=== PATIENT | male | born 1965 | race Hispanic/Latino ===

== ENCOUNTER 2017-06-28 16:24 | Observation (INO) | payer MEDICAID ==
[~2017-06-28] VITALS: Ht 185.4 cm; Wt 104.3 kg
[2017-06-28 16:49] LABS: BASOPHILS % (AUTO) 1.3 % (0.0-5.0); EOSINOPHILS % (AUTO) 1.9 % (0.0-8.0); LYMPHOCYTES % (AUTO) 31.2 % (21.0-51.0); MEAN CORPUSCULAR HEMOGLOBIN 29.5 pg (27.0-33.0); MEAN CORPUSCULAR HGB CONC 34.3 g/dL (32.0-36.0); MEAN CORPUSCULAR VOLUME 86.1 fL (79-99); MONOCYTES % (AUTO) 6.9 % (3.0-13.0); NEUTROPHILS % (AUTO) 58.7 % (40.0-77.0); NUCLEATED RED BLOOD CELLS 0.1 % (0.0-0.19); PLATELET COUNT (AUTO) 301 K/uL (130-400); RED BLOOD CELL COUNT(AUTO) 4.87 MIL/uL (4.50-6.20); RED CELL DISTRIBUTION WIDTH 14.5 % (11.0-15.5); WHITE BLOOD COUNT (AUTO) 7.2 K/uL (4.8-10.8)
[2017-06-28 17:05] LABS: CREATININE 0.9 mg/dL (0.5-1.5); POTASSIUM 3.6 mmol/L (3.5-5.1)
[2017-06-28] MEDS ORDERED: ASPIRIN 325 MG TABLET ONE (17:09)
[2017-06-28] MEDS ORDERED: NITROGLYCERIN 1GM/1 INCH PACKET TD ONE (17:09)
[2017-06-28 17:18] LABS: ALBUMIN 3.6 g/dL (3.5-5.0); BILIRUBIN,TOTAL 0.3 mg/dL (0.2-1.0); CREATINE KINASE MB 0.6 ng/mL (0.5-3.6); TOTAL PROTEIN, SERUM 7.1 g/dL (6.0-8.3)
[2017-06-28 17:22] LABS: INR 0.91 (0.85-1.15); PROTHROMBIN TIME 9.6 SEC (9.6-11.6)
[2017-06-28 17:30] LABS: APPEARANCE,URINE Clear (CLEAR); BILIRUBIN,URINE Negative (NEGATIVE); COLOR,URINE Yellow (YELLOW); GLUCOSE, URINE (UA) Negative (NEGATIVE); KETONES,URINE Negative (NEGATIVE); LEUKOCYTE ESTERASE ,URINE Negative (NEGATIVE); NITRATE,URINE Negative (NEGATIVE); OCCULT BLOOD,URINE Negative (NEGATIVE); PROTEIN,URINE Negative (NEGATIVE)
[2017-06-28 17:37] LABS: AMPHET/METH SCREEN,URINE NEGATIVE (NEGATIVE); BARBITURATE SCREEN, URINE NEGATIVE (NEGATIVE); BENZODIAZEPINES SCREEN,URINE POSITIVE (NEGATIVE); CANNABINOID SCREEN,URINE NEGATIVE (NEGATIVE); COCAINE SCREEN,URINE NEGATIVE (NEGATIVE); OPIATE SCREEN,URINE NEGATIVE (NEGATIVE); PHENCYCLIDINE SCREEN,URINE NEGATIVE (NEGATIVE)
[2017-06-28] MEDS ORDERED: MORPHINE SULFATE 2 MG/ML 1ML SYG ONE (19:58)
[2017-06-28] MEDS ORDERED: METOPROLOL TARTRATE 25 MG TAB ONE (19:58)
[2017-06-28] MEDS ORDERED: LORAZEPAM 1 MG TABLET ONE (21:12)
[2017-06-28 23:13] LABS: CREATINE KINASE MB 0.6 ng/mL (0.5-3.6); CREATINE KINASE, TOTAL 136 U/L (21-232); MYOGLOBIN 41 ng/mL (10-92); TROPONIN I < 0.04 ng/mL (0.00-0.06)
[2017-06-29] MEDS ORDERED: LIDOCAINE HCL-MPF 1% 2ML VIAL IVP PRN (01:15)
[2017-06-29] MEDS ORDERED: ACETAMINOPHEN 325 MG TAB PO PRN (01:15)
[2017-06-29] MEDS ORDERED: HYDRALAZINE HCL 20 MG/ML VIAL IV PRN (01:15)
[2017-06-29] MEDS ORDERED: POTASSIUM CHLORIDE 10% ELIXIR 20 MEQ/15 ML UDCUP PO PRN (01:15)
[2017-06-29] MEDS ORDERED: POTASSIUM CHLORIDE 20MEQ/100ML 100 ML IV PRN (01:15)
[2017-06-29] MEDS ORDERED: POTASSIUM CHLORIDE 20 MEQ ERTAB PO PRN (01:15)
[2017-06-29] MEDS ORDERED: ALBUTEROL SULFATE 0.083% 2.5 MG/3 ML INH IH PRN (01:15)
[2017-06-29] MEDS ORDERED: MORPHINE SULFATE 2 MG/ML 1ML SYG ONE (02:32)
[2017-06-29 04:15] LABS: HEMATOCRIT 43.2 % (42-54); MEAN CORPUSCULAR HEMOGLOBIN 29.2 pg (27.0-33.0); MEAN CORPUSCULAR HGB CONC 34.2 g/dL (32.0-36.0); MEAN CORPUSCULAR VOLUME 85.4 fL (79-99); PLATELET COUNT (AUTO) 317 K/uL (130-400); RED BLOOD CELL COUNT(AUTO) 5.06 MIL/uL (4.50-6.20); RED CELL DISTRIBUTION WIDTH 14.5 % (11.0-15.5)
[2017-06-29 04:36] LABS: B-TYPE NATRIURETIC PEPTIDE < 5 pg/mL (0-100)
[2017-06-29 04:40] LABS: CARBON DIOXIDE 31 mmol/L (21-32); CHLORIDE 102 mmol/L (101-111); CHOLESTEROL 239 mg/dL (<200); CREATINE KINASE MB < 0.5 ng/mL (0.5-3.6); CREATINE KINASE, TOTAL 135 U/L (21-232); CREATININE 0.7 mg/dL (0.5-1.5); GLOMERULAR FILTR. RATE CALC 125 mL/min (>60); GLUCOSE,RANDOM 91 mg/dL (70-105); HDL CHOLESTEROL 47 mg/dL (29-71); LDL DIRECT 166 mg/dL (0-99); MYOGLOBIN 44 ng/mL (10-92); POTASSIUM 3.9 mmol/L (3.5-5.1); SODIUM SERUM 139 mmol/L (136-145); TRIGLYCERIDES 179 mg/dL (30-200); TROPONIN I < 0.04 ng/mL (0.00-0.06); UREA NITROGEN, BLOOD 14 mg/dL (7-18)
[2017-06-29 07:00] VITALS: BP 143/98
[2017-06-29] MEDS ORDERED: LORAZEPAM 0.5 MG TABLET PO SCH (08:00)
[2017-06-29] MEDS: METOPROLOL TARTRATE 25 MG TAB PO SCH ×2 (10:59→20:26)
[2017-06-29] MEDS: ASPIRIN 325MG EC TAB 325 MG TABLET.DR PO SCH (10:59)
[2017-06-29] MEDS: FAMOTIDINE 20MG TAB 20 MG TAB PO SCH ×2 (10:59→20:26)
[2017-06-29] MEDS: ENOXAPARIN SODIUM 40 MG/0.4 ML SYRINGE SQ SCH (11:00)
[2017-06-29] MEDS: MORPHINE SULFATE 2 MG/ML 1ML SYG IVP PRN ×2 (11:00→17:44)
[2017-06-29 12:00] VITALS: BP 161/109
[2017-06-29 16:00] VITALS: BP 149/90
[2017-06-29 19:00] VITALS: BP 145/92
[2017-06-29] MEDS ORDERED: ALPR-410 PO (20:23)
[2017-06-29] MEDS ORDERED: DULO30CA51 PO (20:23)
[2017-06-29] MEDS ORDERED: QUET100T70 PO (20:23)
[2017-06-29] MEDS: ALPRAZOLAM 0.5 MG TABLET PO SCH (21:00)
[2017-06-29] MEDS ORDERED: QUETIAPINE FUMARATE 100 MG TAB PO SCH (21:00)
[2017-06-29] MEDS ORDERED: DULOXETINE HCL 30 MG CAP PO SCH (21:00)
[2017-06-30] VITALS: BP 103/69
[2017-06-30] MEDS: MORPHINE SULFATE 2 MG/ML 1ML SYG IVP PRN (00:21)
[2017-06-30 04:00] VITALS: BP 128/90
[2017-06-30 05:14] LABS: HEMATOCRIT 41.4 % (42-54); MEAN CORPUSCULAR HEMOGLOBIN 29.5 pg (27.0-33.0); MEAN CORPUSCULAR HGB CONC 34.4 g/dL (32.0-36.0); MEAN CORPUSCULAR VOLUME 85.7 fL (79-99); PLATELET COUNT (AUTO) 328 K/uL (130-400); RED BLOOD CELL COUNT(AUTO) 4.83 MIL/uL (4.50-6.20); RED CELL DISTRIBUTION WIDTH 14.2 % (11.0-15.5); WHITE BLOOD COUNT (AUTO) 8.8 K/uL (4.8-10.8)
[2017-06-30 05:34] LABS: CREATININE 0.9 mg/dL (0.5-1.5); POTASSIUM 3.5 mmol/L (3.5-5.1)
[2017-06-30] MEDS ORDERED: MORPHINE SULFATE 4 MG/1ML SYG ONE (06:06)
[2017-06-30 08:00] VITALS: BP 129/89
[2017-06-30] MEDS: ENOXAPARIN SODIUM 40 MG/0.4 ML SYRINGE SQ SCH (08:32)
[2017-06-30] MEDS: ALPRAZOLAM 0.5 MG TABLET PO SCH ×2 (08:32→12:56)
[2017-06-30] MEDS: METOPROLOL TARTRATE 25 MG TAB PO SCH (08:32)
[2017-06-30] MEDS: ASPIRIN 325MG EC TAB 325 MG TABLET.DR PO SCH (08:32)
[2017-06-30] MEDS: FAMOTIDINE 20MG TAB 20 MG TAB PO SCH (08:32)
[2017-06-30] MEDS ORDERED: TRAM50TA4 PO (10:57)
[2017-06-30 11:38] VITALS: BP 137/90
[2017-06-30] MEDS ORDERED: TRAMADOL HCL 50 MG TABLET PO SCH (11:45)
[2017-09-07] MEDS ORDERED: ROSU20TA38 PO (14:26)
[2017-09-07] MEDS ORDERED: QUET100T70 PO (14:26)
[2017-09-07] MEDS ORDERED: METF500T6 PO (14:26)
[2017-09-07] MEDS ORDERED: HYDR-4060 PO (14:26)
[2017-09-07] MEDS ORDERED: LOSA50TA37 PO (14:26)
[2017-09-07] MEDS ORDERED: DULO30CA51 PO (14:26)
[2017-09-07] MEDS ORDERED: ALPR0.5T8 PO (14:26)
[2017-09-07] MEDS ORDERED: HYDR12.54 PO (14:26)
[2017-09-07] MEDS ORDERED: DOCU-272 PO (14:26)
== END 2017-06-30 12:49 | disposition home or self-care (01) ==
LOC: EDH 16:24 → EDHIP 16:25 → 3CH 06-29 07:23
PROVIDERS: ADMIT Internal Medicine; ATTEND Internal Medicine
DX: R07.89 Other chest pain (principal); I10 Essential (primary) hypertension; M46.96 Unspecified inflammatory spondylopathy, lumbar region; G89.29 Other chronic pain; F32.9 Major depressive disorder, single episode, unspecified; F41.9 Anxiety disorder, unspecified; F17.210 Nicotine dependence, cigarettes, uncomplicated
CPT/HCPCS: 36415 ×3; 71045; 72148; 80048 ×2; 80053; 80061; 80305; 81003; 82550 ×3; 82553 ×3; 83874 ×2; 83880; 84484 ×3; 85025; 85027 ×2; 85610; 85730; 93005 ×4; 94640; 94664; 96372 ×2; 96374; 96376 ×2; 99285; G0378 ×44; J1650 ×2; J2270

== ENCOUNTER → 2017-07-17 | Outpatient (CLI) | payer MEDICAID ==
[~2017-07-17] MED LIST: ALPR-410 PO; ALPR0.5T8 PO; DOCU-272 PO; DULO30CA51 PO; HYDR-4060 PO; HYDR12.54 PO; LOSA50TA37 PO; METF500T6 PO; NAPR220C15 PO; QUET100T70 PO; ROSU20TA38 PO; TRAM50TA4 PO
== END | disposition home or self-care (01) ==
LOC: RAH 07:37
PROVIDERS: ATTEND Family Medicine
DX: K40.90 Unilateral inguinal hernia, without obstruction or gangrene, not specified as recurrent (principal); I10 Essential (primary) hypertension; F41.9 Anxiety disorder, unspecified; F17.210 Nicotine dependence, cigarettes, uncomplicated
CPT/HCPCS: 76882

== ENCOUNTER 2017-09-11 07:38 | Day surgery (SDC) | payer MEDICAID ==
[2017-09-07 14:01] VITALS: BP 151/90
[2017-09-07 14:07] LABS: BASOPHILS % (AUTO) 1.1 % (0.0-5.0); HEMATOCRIT 43.9 % (42-54); LYMPHOCYTES % (AUTO) 24.4 % (21.0-51.0); MEAN CORPUSCULAR HEMOGLOBIN 29.5 pg (27.0-33.0); MEAN CORPUSCULAR HGB CONC 34.9 g/dL (32.0-36.0); MEAN CORPUSCULAR VOLUME 84.8 fL (79-99); MONOCYTES % (AUTO) 5.2 % (3.0-13.0); NEUTROPHILS % (AUTO) 68.3 % (40.0-77.0); NUCLEATED RED BLOOD CELLS 0.1 % (0.0-0.19); PLATELET COUNT (AUTO) 323 K/uL (130-400); RED BLOOD CELL COUNT(AUTO) 5.18 MIL/uL (4.50-6.20); RED CELL DISTRIBUTION WIDTH 14.8 % (11.0-15.5); WHITE BLOOD COUNT (AUTO) 9.2 K/uL (4.8-10.8)
[2017-09-07 14:15] LABS: APPEARANCE,URINE Clear (CLEAR); BILIRUBIN,URINE Negative (NEGATIVE); COLOR,URINE Yellow (YELLOW); GLUCOSE, URINE (UA) Negative (NEGATIVE); KETONES,URINE Negative (NEGATIVE); LEUKOCYTE ESTERASE ,URINE Negative (NEGATIVE); NITRATE,URINE Negative (NEGATIVE); OCCULT BLOOD,URINE Negative (NEGATIVE); PH,URINE 7.5 (5.0-8.0); PROTEIN,URINE Negative (NEGATIVE); UROBILINOGEN,URINE 0.2 mg/dL (0.2-1.0)
[2017-09-07 14:15] LABS: POTASSIUM 4.1 mmol/L (3.5-5.1)
[~2017-09-11] VITALS: Ht 180.3 cm; Wt 106.3 kg
[2017-09-11] VITALS (18 sets, daily range): BP systolic 97–144; BP diastolic 35–91
[~2017-09-11 07:38] MED LIST changes: -ALPR-410 PO; +CEFAZOLIN SODIUM 1 GM VIAL IVP SCH; -NAPR220C15 PO; +ROSU20TA30 PO; -ROSU20TA38 PO; -TRAM50TA4 PO
[2017-09-11] MEDS ORDERED: SODIUM CHLORIDE 0.9% 1000ML 1,000 ML IV ONE (08:14)
[2017-09-11] MEDS ORDERED: NAPR220C15 PO (08:22)
[2017-09-11] MEDS ORDERED: DEXAMETHASONE SOD PHOSPHATE 10MG/ML 1ML VIAL ONE (09:18)
[2017-09-11] MEDS ORDERED: PROPOFOL 10 MG/ML 20ML VIAL IV ONE ×2 (09:18→09:42)
[2017-09-11] MEDS ORDERED: LIDOCAINE PF 2% 5ML ABBOJECT ONE (09:18)
[2017-09-11] MEDS ORDERED: MIDAZOLAM HCL 1 MG/ML 2ML VIAL ONE ×2 (09:18→10:28)
[2017-09-11] MEDS ORDERED: GLYCOPYRROLATE 0.2 MG/ML 5 ML VIAL ONE (09:18)
[2017-09-11] MEDS ORDERED: FENTANYL CITRATE PF 50 MCG/1 ML 2ML VIAL ONE (09:18)
[2017-09-11] MEDS ORDERED: ROCURONIUM BROMIDE 10MG/1ML 5ML VL ONE (09:42)
[2017-09-11] MEDS ORDERED: MEPERIDINE-PF 50 MG/ML SYG ONE (11:21)
== END 2017-09-11 13:00 | disposition home or self-care (01) ==
LOC: DAH 07:38
PROVIDERS: ATTEND Surgery
DX: K40.30 Unilateral inguinal hernia, with obstruction, without gangrene, not specified as recurrent (principal); E11.9 Type 2 diabetes mellitus without complications; I10 Essential (primary) hypertension; M54.5 Low back pain; Z82.49 Family history of ischemic heart disease and other diseases of the circulatory system; Z83.3 Family history of diabetes mellitus; Z68.32 Body mass index [BMI] 32.0-32.9, adult; F41.9 Anxiety disorder, unspecified; F32.9 Major depressive disorder, single episode, unspecified; E66.9 Obesity, unspecified; Z98.890 Other specified postprocedural states; Z79.899 Other long term (current) drug therapy; Z79.84 Long term (current) use of oral hypoglycemic drugs
CPT/HCPCS: 36415; 49507; 80048; 81003; 82948 ×2; 85025; 88305; A4218; A4450; A4452; A4600; C1729; C1781; J0690; J1100; J2001; J2175; J2250 ×2; J2704 ×2; J3010; J3490 ×2; J7030 ×2

== ENCOUNTER → 2018-02-05 | Outpatient (CLI) | payer MEDICAID ==
[~2018-02-05] MED LIST changes: -CEFAZOLIN SODIUM 1 GM VIAL IVP SCH; +LOSA50TA25 PO; -LOSA50TA37 PO; +METF-444 PO; -METF500T6 PO; +NAPR220C15 PO
== END | disposition home or self-care (01) ==
LOC: CANPRECLI → RAH 08:43
PROVIDERS: ATTEND Family Medicine
DX: R07.9 Chest pain, unspecified (principal)
CPT/HCPCS: 93306

== ENCOUNTER → 2021-09-14 | Outpatient (CLI) | payer MEDICAID ==
[~2021-09-14] MED LIST changes: -DOCU-272 PO; -DULO30CA51 PO; +DULO30CA52 PO; +FENO145T26 PO; +GABA-531 PO; -HYDR-4060 PO; -HYDR12.54 PO; +HYDR25TA PO; +IBUP-2071 PO; +LORA10TA7 PO; +LOSA100T58 PO; -LOSA50TA25 PO; +METO-409 PO; +QUET100T34 PO; -QUET100T70 PO; -ROSU20TA30 PO; +ROSU20TA31 PO
== END | disposition home or self-care (01) ==
LOC: RAH 13:42
PROVIDERS: ATTEND Family Medicine
DX: N50.819 Testicular pain, unspecified (principal)
CPT/HCPCS: 76870

== ENCOUNTER 2022-04-20 05:46 | Emergency (ER) | payer MEDICAID ==
[~2022-04-20] VITALS: Ht 185.4 cm; Wt 105.7 kg
[2022-04-20 06:54] LABS: BASOPHILS % (AUTO) 0.6 % (0.0-5.0); EOSINOPHILS % (AUTO) 1.6 % (0.0-8.0); HEMATOCRIT 33.1 % (42-54); LYMPHOCYTES % (AUTO) 25.6 % (21.0-51.0); MEAN CORPUSCULAR HEMOGLOBIN 29.3 pg (27.0-33.0); MEAN CORPUSCULAR HGB CONC 33.2 g/dL (32.0-36.0); MONOCYTES % (AUTO) 8.2 % (3.0-13.0); NEUTROPHILS % (AUTO) 62.5 % (40.0-77.0); PLATELET COUNT (AUTO) 289 K/uL (130-400); RED BLOOD CELL COUNT(AUTO) 3.76 MIL/uL (4.50-6.20); RED CELL DISTRIBUTION WIDTH 13.9 % (11.0-15.5); WHITE BLOOD COUNT (AUTO) 11.7 K/uL (4.8-10.8)
[2022-04-20 07:07] LABS: ALBUMIN 3.1 g/dL (3.5-5.0); CREATININE 1.8 mg/dL (0.5-1.5); POTASSIUM 3.6 mmol/L (3.5-5.1); TOTAL PROTEIN, SERUM 6.5 g/dL (6.0-8.3)
[2022-04-20 08:25] VITALS: BP 114/71
[2022-04-20 08:32] LABS: APPEARANCE,URINE CLEAR (CLEAR); BILIRUBIN,URINE NEGATIVE (NEGATIVE); COLOR,URINE LIGHT-YELLOW (YELLOW); GLUCOSE, URINE (UA) NEGATIVE (NEGATIVE); KETONES,URINE NEGATIVE (NEGATIVE); LEUKOCYTE ESTERASE ,URINE NEGATIVE Leu/uL (NEGATIVE); NITRATE,URINE NEGATIVE (NEGATIVE); OCCULT BLOOD,URINE NEGATIVE (NEGATIVE); PH,URINE 6.5 (5.0-8.0); PROTEIN,URINE NEGATIVE (NEGATIVE); UROBILINOGEN,URINE 0.2 mg/dL (0.2-1.0)
[2022-04-20 08:50] LABS: MAGNESIUM 1.5 mg/dL (1.80-2.40)
[2022-04-20] MEDS ORDERED: MAGNESIUM 2GM PREMIX 50ML 50 ML IV SCH (10:30)
== END 2022-04-20 12:19 | disposition left against medical advice (07) ==
LOC: EDH 05:46
DX: I95.9 Hypotension, unspecified (principal); I10 Essential (primary) hypertension; F17.210 Nicotine dependence, cigarettes, uncomplicated; Z79.1 Long term (current) use of non-steroidal anti-inflammatories (NSAID); Z79.84 Long term (current) use of oral hypoglycemic drugs; Z79.899 Other long term (current) drug therapy; Z20.822 Contact with and (suspected) exposure to COVID-19
CPT/HCPCS: 99285; 96365; 70450; 87635; 82550; 83735; 84484; 80053; 85025; 83605; 81003; 36415; 93005; C9803; J3475

== ENCOUNTER 2022-04-30 00:08 | Observation (INO) | payer MEDICAID ==
[~2022-04-30] VITALS: Ht 185.4 cm; Wt 103.0 kg
[2022-04-30 00:25] LABS: BASOPHILS % (AUTO) 0.6 % (0.0-5.0); EOSINOPHILS % (AUTO) 1.3 % (0.0-8.0); HEMATOCRIT 33.1 % (42-54); LYMPHOCYTES % (AUTO) 24.9 % (21.0-51.0); MEAN CORPUSCULAR HEMOGLOBIN 29.5 pg (27.0-33.0); MEAN CORPUSCULAR HGB CONC 33.8 g/dL (32.0-36.0); MEAN CORPUSCULAR VOLUME 87.1 fL (79-99); MONOCYTES % (AUTO) 7.9 % (3.0-13.0); NEUTROPHILS % (AUTO) 64.2 % (40.0-77.0); PLATELET COUNT (AUTO) 334 K/uL (130-400); RED CELL DISTRIBUTION WIDTH 13.9 % (11.0-15.5); WHITE BLOOD COUNT (AUTO) 12.3 K/uL (4.8-10.8)
[2022-04-30 00:33] LABS: CREATININE 2.9 mg/dL (0.5-1.5); POTASSIUM 3.2 mmol/L (3.5-5.1)
[2022-04-30 00:37] LABS: ALBUMIN 3.1 g/dL (3.5-5.0); TOTAL PROTEIN, SERUM 6.8 g/dL (6.0-8.3)
[2022-04-30] MEDS ORDERED: 0.9%NACL 1000ML 1,000 ML IV SCH (01:00)
[2022-04-30] MEDS ORDERED: ONDANSETRON 4MG INJ IVP PRN (06:30)
[2022-04-30] MEDS ORDERED: TEMAZEPAM 15 MG CAPSULE PO PRN (06:30)
[2022-04-30] MEDS ORDERED: LABETALOL 20MG SYG IV PRN (06:30)
[2022-04-30] MEDS ORDERED: ACETAMINOPHEN 325 MG TAB PO PRN (06:30)
[2022-04-30] MEDS ORDERED: CLONIDINE HCL 0.1 MG TABLET PO PRN (06:30)
[2022-04-30] MEDS ORDERED: HYDRALAZINE 20MG/ML VIAL IV PRN (06:30)
[2022-04-30] MEDS ORDERED: ACETAMINOPHEN 650 MG SUPPOSITORY RC PRN (06:30)
[2022-04-30] MEDS ORDERED: LACTULOSE 20 GM/30 ML UDCUP PO PRN (06:30)
[2022-04-30] MEDS ORDERED: DOCUSATE SODIUM 100 MG CAP PO PRN (06:30)
[2022-04-30] MEDS ORDERED: TRAM50TA4 PO (07:48)
[2022-04-30] MEDS ORDERED: METF-444 PO (07:48)
[2022-04-30] MEDS ORDERED: LAMO150T6 PO (07:48)
[2022-04-30] MEDS ORDERED: FENO160T16 PO (07:48)
[2022-04-30] MEDS ORDERED: VENL-63 PO (07:48)
[2022-04-30] MEDS ORDERED: LORA2TAB80 PO (07:48)
[2022-04-30] MEDS ORDERED: ROSU20TA31 PO (07:48)
[2022-04-30] MEDS: ASPIRIN 81MG CHEW TAB PO SCH (08:15)
[2022-04-30] MEDS ORDERED: GLUCAGON 1MG KIT 1 MG ML IM PRN (08:30)
[2022-04-30] MEDS ORDERED: DEXTROSE 50%-WATER 50 ML DISP.SYRIN IV PRN (08:30)
[2022-04-30] MEDS ORDERED: POTASSIUM CHLORIDE 10MEQ/100ML 100 ML IV PRN (08:30)
[2022-04-30] MEDS ORDERED: KCL 20 MEQ ERTAB PO PRN (08:30)
[2022-04-30] MEDS ORDERED: LIDOCAINE HCL-MPF 1% 2ML VIAL IV PRN (08:30)
[2022-04-30 09:38] LABS: HEMATOCRIT 29.8 % (42-54); MEAN CORPUSCULAR HEMOGLOBIN 29.5 pg (27.0-33.0); MEAN CORPUSCULAR HGB CONC 33.2 g/dL (32.0-36.0); MEAN CORPUSCULAR VOLUME 88.7 fL (79-99); RED BLOOD CELL COUNT(AUTO) 3.36 MIL/uL (4.50-6.20); RED CELL DISTRIBUTION WIDTH 14.1 % (11.0-15.5); WHITE BLOOD COUNT (AUTO) 9.4 K/uL (4.8-10.8)
[2022-04-30 09:56] LABS: ALBUMIN 2.7 g/dL (3.5-5.0); POTASSIUM 3.2 mmol/L (3.5-5.1); TOTAL PROTEIN, SERUM 5.8 g/dL (6.0-8.3)
[2022-04-30] MEDS: HEPARIN 5,000 UNIT VIAL SQ SCH ×2 (11:18→18:14)
[2022-04-30] MEDS: POTASSIUM CHLORIDE 10% ELIXIR 20 MEQ/15 ML UDCUP PO PRN ×4 (11:18→16:19)
[2022-04-30] MEDS: INSULIN HUMULIN R 100 UNIT/ML 3ML SQ SCH ×3 (11:30→21:00)
[2022-04-30 12:00] VITALS: BP 140/115
[2022-04-30] MEDS ORDERED: LORAZEPAM 2 MG TABLET PO PRN (12:00)
[2022-04-30] MEDS ORDERED: LACTATED RINGERS 1000ML IV SCH (12:00)
[2022-04-30] MEDS: VENLAFAXINE HCL XR 37.5 MG CAP PO SCH (13:17)
[2022-04-30] MEDS: LAMOTRIGINE 100 MG TABLET PO SCH (13:17)
[2022-04-30] MEDS: ALPRAZOLAM 0.5 MG TABLET PO SCH ×2 (14:00→22:08)
[2022-04-30] MEDS: LACTATED RINGERS 1000ML 1,000 ML IV SCH ×2 (15:12→22:00)
[2022-04-30] MEDS: GABAPENTIN 300 MG CAPSULE PO SCH ×2 (15:12→22:02)
[2022-04-30 16:00] VITALS: BP 95/63
[2022-04-30] MEDS ORDERED: ATORVASTATIN 40 MG TABLET PO SCH (21:00)
[2022-04-30 21:10] VITALS: BP 99/71
[2022-04-30 21:30] LABS: APPEARANCE,URINE CLEAR (CLEAR); BILIRUBIN,URINE NEGATIVE (NEGATIVE); COLOR,URINE COLORLESS (YELLOW); GLUCOSE, URINE (UA) NEGATIVE (NEGATIVE); KETONES,URINE NEGATIVE (NEGATIVE); LEUKOCYTE ESTERASE ,URINE NEGATIVE Leu/uL (NEGATIVE); NITRATE,URINE NEGATIVE (NEGATIVE); OCCULT BLOOD,URINE NEGATIVE (NEGATIVE); PH,URINE 6.5 (5.0-8.0); PROTEIN,URINE NEGATIVE (NEGATIVE); UROBILINOGEN,URINE 0.2 mg/dL (0.2-1.0)
[2022-04-30] MEDS: QUETIAPINE FUMARATE 100 MG TAB PO SCH (22:01)
[2022-04-30] MEDS: ATORVASTATIN 40 MG TABLET PO SCH (22:02)
[2022-04-30] MEDS: TRAMADOL HCL 50 MG TABLET PO PRN (23:28)
[2022-04-30] MEDS ORDERED: OXYCODONE/ACETAMIN 5/325MG TAB PO PRN ×2 (23:30)
[2022-05-01 00:04] VITALS: BP 108/64
[2022-05-01] MEDS: HEPARIN 5,000 UNIT VIAL SQ SCH ×3 (01:06→18:13)
[2022-05-01] MEDS: LACTATED RINGERS 1000ML 1,000 ML IV SCH ×2 (04:23→19:26)
[2022-05-01 04:32] VITALS: BP 115/78
[2022-05-01 04:38] LABS: BASOPHILS % (AUTO) 0.6 % (0.0-5.0); EOSINOPHILS % (AUTO) 2.2 % (0.0-8.0); HEMATOCRIT 29.6 % (42-54); LYMPHOCYTES % (AUTO) 27.1 % (21.0-51.0); MEAN CORPUSCULAR HEMOGLOBIN 29.3 pg (27.0-33.0); MEAN CORPUSCULAR HGB CONC 32.4 g/dL (32.0-36.0); MEAN CORPUSCULAR VOLUME 90.2 fL (79-99); MONOCYTES % (AUTO) 7.1 % (3.0-13.0); PLATELET COUNT (AUTO) 270 K/uL (130-400); RED BLOOD CELL COUNT(AUTO) 3.28 MIL/uL (4.50-6.20); RED CELL DISTRIBUTION WIDTH 14.1 % (11.0-15.5)
[2022-05-01 04:59] LABS: CREATININE 1.9 mg/dL (0.5-1.5); MAGNESIUM 1.6 mg/dL (1.80-2.40); PHOSPHORUS 3.9 mg/dL (2.5-4.9); POTASSIUM 3.5 mmol/L (3.5-5.1)
[2022-05-01] MEDS: MAGNESIUM 2GM PREMIX 50ML 50 ML IV PRN (05:42)
[2022-05-01] MEDS: POTASSIUM CHLORIDE 10% ELIXIR 20 MEQ/15 ML UDCUP PO PRN ×2 (05:47→19:27)
[2022-05-01] MEDS: INSULIN HUMULIN R 100 UNIT/ML 3ML SQ SCH ×4 (06:05→21:00)
[2022-05-01 08:00] VITALS: BP 116/75
[2022-05-01] MEDS: VENLAFAXINE HCL XR 37.5 MG CAP PO SCH (08:55)
[2022-05-01] MEDS: ASPIRIN 81MG CHEW TAB PO SCH (08:56)
[2022-05-01] MEDS: DULOXETINE HCL 30 MG CAP PO SCH (08:56)
[2022-05-01] MEDS: ALPRAZOLAM 0.5 MG TABLET PO SCH ×3 (08:56→19:29)
[2022-05-01] MEDS: LORATADINE 10 MG TABLET PO SCH (08:57)
[2022-05-01] MEDS: LAMOTRIGINE 100 MG TABLET PO SCH (08:57)
[2022-05-01] MEDS: GABAPENTIN 300 MG CAPSULE PO SCH ×3 (08:58→19:27)
[2022-05-01] MEDS: FENOFIBRATE 160 MG PO SCH (09:00)
[2022-05-01 12:00] VITALS: BP 127/74
[2022-05-01 15:44] VITALS: BP 135/86
[2022-05-01] MEDS: TRAMADOL HCL 50 MG TABLET PO PRN (17:11)
[2022-05-01] MEDS: QUETIAPINE FUMARATE 100 MG TAB PO SCH (19:27)
[2022-05-01] MEDS: ATORVASTATIN 40 MG TABLET PO SCH (19:27)
[2022-05-01 21:13] VITALS: BP 125/86
[2022-05-02] VITALS: BP 126/82
[2022-05-02] MEDS: HEPARIN 5,000 UNIT VIAL SQ SCH ×2 (01:11→09:25)
[2022-05-02] MEDS: TRAMADOL HCL 50 MG TABLET PO PRN ×2 (02:43→09:15)
[2022-05-02] MEDS: LACTATED RINGERS 1000ML 1,000 ML IV SCH ×2 (03:41→05:06)
[2022-05-02 04:00] VITALS: BP 134/76
[2022-05-02 05:07] LABS: BASOPHILS % (AUTO) 0.6 % (0.0-5.0); EOSINOPHILS % (AUTO) 1.9 % (0.0-8.0); LYMPHOCYTES % (AUTO) 33.5 % (21.0-51.0); MEAN CORPUSCULAR HEMOGLOBIN 29.6 pg (27.0-33.0); MEAN CORPUSCULAR HGB CONC 32.9 g/dL (32.0-36.0); MEAN CORPUSCULAR VOLUME 89.9 fL (79-99); MONOCYTES % (AUTO) 7.6 % (3.0-13.0); NEUTROPHILS % (AUTO) 55.8 % (40.0-77.0); PLATELET COUNT (AUTO) 278 K/uL (130-400); RED BLOOD CELL COUNT(AUTO) 3.45 MIL/uL (4.50-6.20); RED CELL DISTRIBUTION WIDTH 13.9 % (11.0-15.5); WHITE BLOOD COUNT (AUTO) 6.7 K/uL (4.8-10.8)
[2022-05-02 05:16] LABS: % IRON SATURATION 15.8 % (30-44)
[2022-05-02 05:17] LABS: CREATININE 1.1 mg/dL (0.5-1.5); MAGNESIUM 1.4 mg/dL (1.80-2.40); PHOSPHORUS 2.2 mg/dL (2.5-4.9); POTASSIUM 3.1 mmol/L (3.5-5.1)
[2022-05-02] MEDS: POTASSIUM CHLORIDE 10% ELIXIR 20 MEQ/15 ML UDCUP PO PRN (06:02)
[2022-05-02] MEDS: MAGNESIUM 2GM PREMIX 50ML 50 ML IV PRN (06:03)
[2022-05-02] MEDS: INSULIN HUMULIN R 100 UNIT/ML 3ML SQ SCH ×2 (06:07→10:30)
[2022-05-02 08:00] VITALS: BP 153/88
[2022-05-02] MEDS: FENOFIBRATE 160 MG PO SCH (09:00)
[2022-05-02] MEDS: ASPIRIN 81MG CHEW TAB PO SCH (09:15)
[2022-05-02] MEDS: GABAPENTIN 300 MG CAPSULE PO SCH (09:15)
[2022-05-02] MEDS: DULOXETINE HCL 30 MG CAP PO SCH (09:15)
[2022-05-02] MEDS: LORATADINE 10 MG TABLET PO SCH (09:15)
[2022-05-02] MEDS: LAMOTRIGINE 100 MG TABLET PO SCH (09:16)
[2022-05-02] MEDS: VENLAFAXINE HCL XR 37.5 MG CAP PO SCH (09:16)
[2022-05-02] MEDS: ALPRAZOLAM 0.5 MG TABLET PO SCH (09:16)
[2022-05-02] MEDS ORDERED: IRON SUCROSE COMPLEX 300 MG in 0.9% NACL 250ML 250 ML IV SCH (09:30)
[2022-05-02 12:00] VITALS: BP 151/95
== END 2022-05-02 14:54 | disposition home or self-care (01) ==
LOC: EDH 00:08 → EDHIP 00:09 → 4CH 11:52
PROVIDERS: ADMIT Internal Medicine Pulmonary Disease; ATTEND Internal Medicine Pulmonary Disease
DX: I95.9 Hypotension, unspecified (principal); Z20.822 Contact with and (suspected) exposure to COVID-19; N17.9 Acute kidney failure, unspecified; D72.829 Elevated white blood cell count, unspecified; G89.29 Other chronic pain; M54.9 Dorsalgia, unspecified; I10 Essential (primary) hypertension; N12 Tubulo-interstitial nephritis, not specified as acute or chronic; E66.9 Obesity, unspecified; E11.9 Type 2 diabetes mellitus without complications; E86.9 Volume depletion, unspecified; E87.8 Other disorders of electrolyte and fluid balance, not elsewhere classified; I45.9 Conduction disorder, unspecified; F31.9 Bipolar disorder, unspecified; F41.8 Other specified anxiety disorders; E78.00 Pure hypercholesterolemia, unspecified; F43.10 Post-traumatic stress disorder, unspecified; F17.200 Nicotine dependence, unspecified, uncomplicated; T39.395A Adverse effect of other nonsteroidal anti-inflammatory drugs [NSAID], initial encounter; Z79.899 Other long term (current) drug therapy
CPT/HCPCS: 96372 ×3; 96361 ×3; 99285; 84484; 80053 ×2; 85025 ×3; 85027; 85378; 87040 ×2; 87804 ×2; 82948 ×10; 83605; 87426; 81003; 36415 ×3; 71045; 70450; 76770; 93880; 93005; 96365; 96366 ×2; 83735 ×2; 84100 ×2; 80048 ×2; 93306; 93356; 96367; 83540; 83550; G0378 ×56; J7120 ×4; J1644 ×7; J3475 ×2; J1756; J3490; J7050

== ENCOUNTER 2023-03-30 17:23 | Emergency (ER) | payer MEDICAID ==
[~2023-03-30] VITALS: Ht 185.4 cm; Wt 107.0 kg
[~2023-03-30 17:23] MED LIST changes: -ALPR0.5T8 PO; +ASPI-1005 PO; +CLON1TAB12 PO; -DULO30CA52 PO; -FENO145T26 PO; +FENO160T16 PO; -IBUP-2071 PO; +IBUP-2077 PO; +LAMO150T6 PO; +LORA2TAB80 PO; -LOSA100T58 PO; +LOSA100T59 PO; -NAPR220C15 PO; +QUET300T19 PO; -ROSU20TA31 PO; +ROSU20TA73 PO; +SIMV-43 PO; +TRAM50TA4 PO; +VANLAFAXINE PO; +VENL-63 PO
[2023-03-30 21:07] LABS: BASOPHILS # (AUTO) 0.08 K/uL (0.00-0.20); BASOPHILS % (AUTO) 0.7 % (0.0-5.0); EOSINOPHILS # (AUTO) 0.23 K/uL (0.00-0.70); EOSINOPHILS % (AUTO) 2.2 % (0.0-8.0); HEMATOCRIT 34.1 % (42-54); IMMATURE GRANULOCYTE ABSOLUTE 0.06 K/uL (0-1); LYMPHOCYTES # (AUTO) 2.7 K/uL (1.0-4.8); LYMPHOCYTES % (AUTO) 24.9 % (21.0-51.0); MEAN CORPUSCULAR HEMOGLOBIN 29.4 pg (27.0-33.0); MEAN CORPUSCULAR HGB CONC 33.1 g/dL (32.0-36.0); MEAN CORPUSCULAR VOLUME 88.6 fL (79-99); MONOCYTES # (AUTO) 0.8 K/uL (0.1-1.0); MONOCYTES % (AUTO) 7.1 % (3.0-13.0); NEUTROPHILS # (AUTO) 6.9 K/uL (1.8-7.7); NEUTROPHILS % (AUTO) 64.5 % (40.0-77.0); PLATELET COUNT (AUTO) 317 K/uL (130-400); RED BLOOD CELL COUNT(AUTO) 3.85 MIL/uL (4.50-6.20); RED CELL DISTRIBUTION WIDTH 13.3 % (11.0-15.5); WHITE BLOOD COUNT (AUTO) 10.7 K/uL (4.8-10.8)
[2023-03-30 21:11] LABS: CREATININE 3.1 mg/dL (0.5-1.5)
[2023-03-30 21:16] LABS: ALBUMIN 3.6 g/dL (3.5-5.0); BILIRUBIN,TOTAL 0.3 mg/dL (0.2-1.0); TOTAL PROTEIN, SERUM 7.4 g/dL (6.0-8.3)
[2023-03-30 21:51] LABS: APPEARANCE,URINE CLEAR (CLEAR); BILIRUBIN,URINE NEGATIVE (NEGATIVE); COLOR,URINE LIGHT-YELLOW (YELLOW); GLUCOSE, URINE (UA) NEGATIVE (NEGATIVE); KETONES,URINE NEGATIVE (NEGATIVE); LEUKOCYTE ESTERASE ,URINE NEGATIVE Leu/uL (NEGATIVE); NITRATE,URINE NEGATIVE (NEGATIVE); OCCULT BLOOD,URINE NEGATIVE (NEGATIVE); PH,URINE 5.5 (5.0-8.0); PROTEIN,URINE NEGATIVE (NEGATIVE); UROBILINOGEN,URINE 0.2 mg/dL (0.2-1.0)
[2023-03-30 21:52] LABS: ADD UA MICROSCOPIC NO
[2023-03-30 23:05] VITALS: BP 100/54; PULSE 80; RESP 18; O2SAT 97
[2023-03-30] MEDS ORDERED: TAMS-1 PO (23:29)
[2023-03-30] MEDS ORDERED: ACET-2893 PO (23:30)
[2023-03-30] MEDS ORDERED: ACETAMINOPHEN 325 MG TAB PO ONE (23:30)
== END 2023-03-30 23:47 | disposition home or self-care (01) ==
LOC: EDH 17:23
DX: N20.0 Calculus of kidney (principal); N17.9 Acute kidney failure, unspecified; M47.816 Spondylosis without myelopathy or radiculopathy, lumbar region; I10 Essential (primary) hypertension; E11.9 Type 2 diabetes mellitus without complications; F17.200 Nicotine dependence, unspecified, uncomplicated; Z79.82 Long term (current) use of aspirin; Z79.84 Long term (current) use of oral hypoglycemic drugs; Z79.899 Other long term (current) drug therapy; Z98.890 Other specified postprocedural states
CPT/HCPCS: 36415; 72131; 80053; 81003; 82550; 83690; 84484; 85025; 93005